=== PATIENT | male | born 1955 | race Caucasian/White ===

== ENCOUNTER 2024-08-06 07:40 | Day surgery (SDC) | payer MEDICARE, BC, SELFPAY ==
[2024-08-05 10:58] VITALS: BMI 26.0
[2024-08-06] VITALS (10 sets, daily range): BP systolic 101–142; BP diastolic 70–90; PULSE 47–59; RESP 10–18; TEMP 36.2–36.8; O2SAT 96–98; BMI 26.6
[2024-08-06] MEDS: SODIUM CHLORIDE 0.9% 500 ML 500 ML 20 ML IV (10:27)
[2024-08-06] MEDS: MIDAZOLAM INJ 1 MG/ML VIAL 2 ML (ASD USE ONLY) 2 MG IV (10:27)
[2024-08-06] MEDS: DiphenhydrAMINE INJ 50 MG/ML VIAL 25 MG IV (10:33)
[2024-08-06] MEDS: fentaNYL CIT INJ 50 mCg/ML AMP 2ML (ASD USE ONLY) IV (10:40)
== END 2024-08-06 11:40 | disposition home or self-care (01) ==
PROVIDERS: PCP Specialist; Referring Provider Specialist; Visit Provider Specialist
PROC: 0DBE8ZX Excision of Large Intestine, Via Natural or Artificial Opening Endoscopic, Diagnostic (ICD-10-PCS; CPT 45380; principal; 2024-08-06 09:00)
DX: Z12.11 Encounter for screening for malignant neoplasm of colon (principal); D12.5 Benign neoplasm of sigmoid colon; K64.9 Unspecified hemorrhoids; K57.30 Diverticulosis of large intestine without perforation or abscess without bleeding
CPT/HCPCS: 45380; 45385; J1200; J2250; J3010; J7040

== ENCOUNTER → 2024-11-11 | Outpatient (CLI) | payer MEDICARE, BC, SELFPAY ==
[2024-11-11 08:28] LABS: Cardiac Risk Estimate 3.4 RATIO (4.0-6.7); Cholesterol 136 mg/dL (132-200); HDL Cholesterol 40 mg/dL (40-60); LDL Cholesterol,Calculated 68 mg/dL (0-130); Triglycerides 139 mg/dL (30-150)
== END | disposition home or self-care (01) ==
PROVIDERS: PCP Specialist; Referring Provider Specialist; Visit Provider Specialist
DX: E78.5 Hyperlipidemia, unspecified (principal); R06.02 Shortness of breath; K57.30 Diverticulosis of large intestine without perforation or abscess without bleeding
CPT/HCPCS: 36415; 80061